=== PATIENT | female | born 1965 | race Caucasian/White ===

== ENCOUNTER 2024-01-04 01:16 | Emergency (ER) | payer OTHER ==
[~2024-01-04] VITALS: Ht 165.1 cm; Wt 86.4 kg
[2024-01-04 01:19] VITALS: TEMP 98.2
[2024-01-04] MEDS ORDERED: Morphine 4 MG/ML VIAL IV ONE (01:30)
[2024-01-04] MEDS ORDERED: Home oxyCODONE/Acetaminophen 5/325 MG #4 TAB/PACK PO ONE (01:45)
[2024-01-04] MEDS ORDERED: NS 500 ML IV ONE (01:58)
[2024-01-04] MEDS ORDERED: PERCOCET 325 MG1 TA2 PO (02:09)
[2024-01-04] MEDS ORDERED: CEPHALEXIN500 M1 PO (02:09)
[2024-01-04 02:59] VITALS: BP 102/71; PULSE 78
== END 2024-01-04 03:27 | disposition home or self-care (01) ==
LOC: COL.ER 01:16
DX: S52.502A Unspecified fracture of the lower end of left radius, initial encounter for closed fracture (principal); W01.0XXA Fall on same level from slipping, tripping and stumbling without subsequent striking against object, initial encounter; Y92.89 Other specified places as the place of occurrence of the external cause
CPT/HCPCS: J2270; J3360; J7040